=== PATIENT | male | born 1955 | race Caucasian/White ===

== ENCOUNTER 2017-11-15 18:59 | Observation (INO) | payer BC ==
[2017-11-15] MEDS ORDERED: Aspirin 81 MG Tab.Chew PO ONE (19:14)
[2017-11-15] MEDS ORDERED: Sodium Chloride 0.9% 2.5 ML Syringe FLUSH PRN (19:14)
[2017-11-15] MEDS ORDERED: Albuterol/Ipratropium 3.0-0.5 MG/3 ML Neb Soln NEB ONE (19:14)
[2017-11-15] MEDS ORDERED: Sodium Chloride 0.9% 10 ML Syringe FLUSH PRN (19:14)
--- NOTE | 2017-11-15 19:18 | EDM.PDOC ---
ED HPI GENERAL MEDICAL PROBLEM - General Chief Complaint: Chest Pain Stated Complaint: FULL LIKE SYSTOM AND BOTH HAND AND ARMS TINGLE Time Seen by Provider: 11/15/17 19:08 - History of Present Illness INITIAL COMMENTS - FREE TEXT/NARRATIVE: HISTORY AND PHYSICAL: History of present illness: The patient is a 62-year-old male who follows with Dr. Thomas in our clinic and has a history of hypertension and hypercholesterolemia and has a history of smoking but quit 30+ years ago and was last tested as was 2 years ago which he did well on, who presents tonight with complaints of feeling rundown and low energy yesterday and then today about 12 noon feeling like he could not take a deep breath. He doesn't describe it as chest pain or shortness of breath but says that he felt like he should take a deep breath like he needed more oxygen and he couldn't do that. He said he felt some tightness in his chest when that occurred. Currently he feels at his baseline in the ED. He says he had a slight cough which was dry but no fevers no chills no runny nose or sore throat no abdominal pain vomiting or diarrhea. He is eating and drinking normally. He has no leg pain or swelling. He was concerned because he's never had this before and he wanted evaluation. He says he completely feels at his baseline currently. He's never been diagnosed with any cardiac or pulmonary disease. He has an appointment with Dr. Thomas next week for numbness and tingling in bilateral feet that has been ongoing for more than 6 months and that is not new or different today. He said that with today's symptoms he felt tingling in his arms bilaterally but currently that is not present. He had no weakness in his arms. The patient has no neck or back pain and no recent trauma or strenuous activity. The patient says that his symptoms with his breathing or both at rest and with activity. Review of systems: As per history of present illness and below otherwise all systems reviewed and negative. Past medical history: As per history of present illness and as reviewed below otherwise noncontributory. Surgical history: As per history of present illness and as reviewed below otherwise noncontributory. Social history: No reported history of drug or alcohol abuse. Family history: As per history of present illness and as reviewed below otherwise noncontributory. Physical exam: General: Well-developed well-nourished man who is nontoxic and vital signs are noted by me. He speaking clearly and easily in the ED without breathlessness HEENT: Atraumatic, normocephalic, negative for conjunctival pallor or scleral icterus, mucous membranes moist, throat clear, neck supple, nontender, trachea midline. Lungs: Clear to auscultation, breath sounds equal bilaterally, chest nontender. No wheezing stridor or work of breathing Heart: S1S2, regular rate and rhythm no overt murmurs and no overt JVD Abdomen: Soft, nondistended, nontender. Negative for masses or hepatosplenomegaly. NABS. There is some tympany on percussion of the upper abdomen without tenderness rebound or guarding Pelvis: Stable nontender. Genitourinary: Deferred. Rectal: Deferred. Extremities: Atraumatic, negative for cords or calf pain. Neurovascular unremarkable. No pedal edema or leg asymmetry Neuro: Awake, alert, oriented. Cranial nerves II through XII unremarkable. Cerebellum unremarkable. Motor and sensory unremarkable throughout. Exam nonfocal. Diagnostics: EKG chest x-ray CBC CMP troponin Therapeutics: IV O2 monitor aspirin duo neb Patient and at bedside are aware of all testing results and my concerns about the atypical nature of his presentation and the vagueness of his symptoms. I have offered and recommended a 23 hour observation due to his risk factors and age and he is agreeable. I will discuss this case with Dr. Camacho and place him on telemetry Impression: Nonspecific dyspnea, atypical chest pain rule out ACS Definitive disposition and diagnosis as appropriate pending reevaluation and review of above. Chest Pain Score (Numeric/FACES): 4 - Related Data Allergies Allergy/AdvReac Type Severity Reaction Status Date / Time No Known Allergies Allergy Verified 11/15/17 19:06 Home Meds: Home Meds Aspirin [Low Dose Aspirin EC] 81 mg PO DAILY 11/15/17 [History] Losartan/Hydrochlorothiazide [Losartan-HCTZ 100-25 MG] 1 tab PO DAILY 11/15/17 [ History] atorvaSTATin [Lipitor] 20 mg PO BEDTIME 11/15/17 [History] Past Medical History Cardiovascular History: Reports: High Cholesterol, Hypertension - Infectious Disease History Infectious Disease History: Reports: Chicken Pox, Measles Social & Family History - Tobacco Use Smoking Status *Q: Former Smoker Used Tobacco, but Quit: Yes Month/Year Tobacco Last Used: 1984 - Recreational Drug Use Recreational Drug Use: No ED ROS GENERAL - Review of Systems Review Of Systems: ROS reveals no pertinent complaints other than HPI. ED EXAM, GENERAL - Physical Exam Exam: See Below (See dictation) Course - Vital Signs Last Recorded V/S: Last Vital Signs Temp 36.3 C 11/15/17 19:03 Pulse 83 11/15/17 20:13 Resp 16 11/15/17 20:13 BP 114/80 11/15/17 20:13 Pulse Ox 93 L 11/15/17 20:13 - Orders/Labs/Meds Orders: Active Orders 24 hr Category Date Time Status Cardiac Monitoring [RC] . DIRECTED Care 11/15/17 19:13 Active EKG Documentation Completion [RC] STAT Care 11/15/17 19:13 Active Oxygen Therapy, ED [RC] ASDIRECTED Care 11/15/17 19:13 Active Pulse Oximetry [RC] ASDIRECTED Care 11/15/17 19:13 Active RT Aerosol Therapy [RC] ASDIRECTED Care 11/15/17 19:14 Active Chest 1V Frontal [CR] Stat Exams 11/15/17 19:14 Taken Sodium Chloride 0.9% [Saline Flush] Med 11/15/17 19:14 Active 10 ml FLUSH ASDIRECTED PRN Sodium Chloride 0.9% [Saline Flush] Med 11/15/17 19:14 Active 2.5 ml FLUSH ASDIRECTED PRN Saline Lock Insert [OM.PC] Stat Oth 11/15/17 19:13 Ordered Medication Orders Sodium Chloride (Saline Flush) 10 ml FLUSH ASDIRECTED PRN PRN Reason: Keep Vein Open Sodium Chloride (Saline Flush) 2.5 ml FLUSH ASDIRECTED PRN PRN Reason: Keep Vein Open Labs: Laboratory Tests 11/15/17 11/15/17 Range/Units 19:14 19:14 WBC 9.25 (4.0-11.0) K/uL RBC 5.26 (4.50-5.90) M/uL Hgb 16.3 (13.0-17.0) g/dL Hct 44.4 (38.0-50.0) % MCV 84.4 (80.0-98.0) fL MCH 31.0 (27.0-32.0) pg MCHC 36.7 (31.0-37.0) g/dL RDW Std Deviation 39.2 (28.0-62.0) fl RDW Coeff of Basilia 13 (11.0-15.0) % Plt Count 156 (150-400) K/uL MPV 12.00 (7.40-12.00) fL Neut % (Auto) 61.6 (48.0-80.0) % Lymph % (Auto) 27.5 (16.0-40.0) % [place] % (Auto) 8.8 (0.0-15.0) % Eos % (Auto) 1.7 (0.0-7.0) % Baso % (Auto) 0.4 (0.0-1.5) % Neut # (Auto) 5.7 (1.4-5.7) K/uL Lymph # (Auto) 2.5 H (0.6-2.4) K/uL [place] # (Auto) 0.8 (0.0-0.8) K/uL Eos # (Auto) 0.2 (0.0-0.7) K/uL Baso # (Auto) 0.0 (0.0-0.1) K/uL Nucleated RBC % 0.0 /100WBC Nucleated RBCs # 0 K/uL Sodium 137 (136-148) mmol/L Potassium 3.4 L (3.5-5.1) mmol/L Chloride 101 (98-107) mmol/L Carbon Dioxide 28.4 (21.0-32.0) mmol/L BUN 20 H (7.0-18.0) mg/dL Creatinine 1.2 (0.8-1.3) mg/dL Est Cr Clr Drug Dosing 67.11 mL/min Estimated GFR (MDRD) > 60.0 ml/min Glucose 136 H (74-106) mg/dL Calcium 10.0 (8.5-10.1) mg/dL Total Bilirubin 0.7 (0.2-1.0) mg/dL AST 21 (15-37) IU/L ALT 41 (14-63) IU/L Alkaline Phosphatase 78 (46-116) U/L Troponin I < 0.050 (0.000-0.056) ng/mL Total Protein 8.0 (6.4-8.2) g/dL Albumin 4.4 (3.4-5.0) g/dL Globulin 3.6 H (2.0-3.5) g/dL Albumin/Globulin Ratio 1.2 L (1.3-2.8) Meds: Medications Generic Name Dose Route Start Last Admin Trade Name Freq PRN Reason Stop Dose Admin Sodium Chloride 10 ml 11/15/17 19:14 Saline Flush FLUSH ASDIRECTED PRN Keep Vein Open Sodium Chloride 2.5 ml 11/15/17 19:14 Saline Flush FLUSH ASDIRECTED PRN Keep Vein Open Discontinued Medications Generic Name Dose Route Start Last Admin Trade Name Freq PRN Reason Stop Dose Admin Albuterol/Ipratropium 3 ml 11/15/17 19:14 11/15/17 19:28 Duoneb 3.0-0.5 Mg/3 Ml NEB 11/15/17 19:15 3 ml ONETIME ONE Administration Aspirin 324 mg 11/15/17 19:14 11/15/17 19:34 Aspirin PO 11/15/17 19:15 324 mg ONETIME ONE Administration Departure - Departure Time of Disposition: 20:19 Disposition: Refer to Observation Condition: Good Clinical Impression: Atypical chest pain Dyspnea Qualifiers: Dyspnea type: unspecified Qualified Code(s): R06.00 - Dyspnea, unspecified - Discharge Information Referrals: Nakul Thomas MD [Primary Care Provider] - Forms: ED Department Discharge - My Orders Last 24 Hours: My Active Orders 11/15/17 19:13 Cardiac Monitoring [RC] . DIRECTED EKG Documentation Completion [RC] STAT Oxygen Therapy, ED [RC] ASDIRECTED Pulse Oximetry [RC] ASDIRECTED Saline Lock Insert [OM.PC] Stat 11/15/17 19:14 RT Aerosol Therapy [RC] ASDIRECTED Chest 1V Frontal [CR] Stat Sodium Chloride 0.9% [Saline Flush] 10 ml FLUSH ASDIRECTED PRN Sodium Chloride 0.9% [Saline Flush] 2.5 ml FLUSH ASDIRECTED PRN - Assessment/Plan Last 24 Hours: My Active Orders 11/15/17 19:13 Cardiac Monitoring [RC] . DIRECTED EKG Documentation Completion [RC] STAT Oxygen Therapy, ED [RC] ASDIRECTED Pulse Oximetry [RC] ASDIRECTED Saline Lock Insert [OM.PC] Stat 11/15/17 19:14 RT Aerosol Therapy [RC] ASDIRECTED Chest 1V Frontal [CR] Stat Sodium Chloride 0.9% [Saline Flush] 10 ml FLUSH ASDIRECTED PRN Sodium Chloride 0.9% [Saline Flush] 2.5 ml FLUSH ASDIRECTED PRN
[2017-11-15 19:45] LABS: CHLORIDE,CL 101 mmol/L (98-107); SODIUM,NA 137 mmol/L (136-148)
[2017-11-15] MEDS ORDERED: Calcium Carbonate 500 MG Tab.Chew PO PRN (22:12)
[2017-11-15] MEDS ORDERED: Acetaminophen 325 MG Tab PO PRN (22:14)
--- NOTE | 2017-11-16 07:53 | PCM.HP ---
H&P History of Present Illness - General Date of Service: 11/16/17 Admit Problem/Dx: Admission Diagnosis/Problem Admission Diagnosis/Problem Dyspnea - History of Present Illness Initial Comments - Free Text/Narative: The patient is a 62-year-old male who presented to the ER with complaints of lightheadedness, chest tightness, overall feeling of being run down and he felt he couldn't catch his breath. He had been feeling this for a couple days. He denies any acute chest pain, but just felt tight and he denies any shortness of breath, just feeling like he couldn't take a deep breath. He does have significant family history of heart disease with his older brother dying of a heart attack at 63 and his father having his first heart attack at 58. The patient does have history of hypertension, hyperlipidemia, was a former smoker 30 years ago, He gets stress tests every couple years. He thinks his last stress test was 2-3 years ago. They've never found any abnormalities on the stress test. In the ER, they did chest x-ray that showed no acute cardiopulmonary process, an EKG which was showed sinus rhythm, they got a CBC, CMP, and initial troponin which was negative. In the ER, they gave him a dose of aspirin and a DuoNeb treatment, which only helped a little. He is currently asymptomatic and wants to go home. Chest Pain Score (Numeric/FACES): 4 - Related Data Allergies/Adverse Reactions: Allergies Allergy/AdvReac Type Severity Reaction Status Date / Time No Known Allergies Allergy Verified 11/15/17 19:06 Home Medications: Home Meds Aspirin [Low Dose Aspirin EC] 81 mg PO DAILY 11/15/17 [History] Losartan/Hydrochlorothiazide [Losartan-HCTZ 100-25 MG] 1 tab PO DAILY 11/15/17 [ History] atorvaSTATin [Lipitor] 20 mg PO BEDTIME 11/15/17 [History] Past Medical History Cardiovascular History: Reports: High Cholesterol, Hypertension - Infectious Disease History Infectious Disease History: Reports: Chicken Pox, Hepatitis C, Measles - Past Surgical History Head Surgeries/Procedures: Reports: None HEENT Surgical History: Reports: None Cardiovascular Surgical History: Reports: None Respiratory Surgical History: Reports: None GI Surgical History: Reports: None Male Surgical History: Reports: None Endocrine Surgical History: Reports: None Neurological Surgical History: Reports: None Musculoskeletal Surgical History: Reports: None Oncologic Surgical History: Reports: None Dermatological Surgical History: Reports: None Social & Family History - Tobacco Use Smoking Status *Q: Never Smoker Used Tobacco, but Quit: Yes Month/Year Tobacco Last Used: 1984 - Caffeine Use Caffeine Use: Reports: Coffee - Alcohol Use Alcohol Use History: No - Recreational Drug Use Recreational Drug Use: No H&P Review of Systems - Review of Systems: Review Of Systems: See Below General: Reports: Fatigue HEENT: Reports: No Symptoms Pulmonary: Reports: Other (trouble getting deep breath-resolved) Cardiovascular: Reports: Other (chest tightness resolved) Gastrointestinal: Reports: No Symptoms Genitourinary: Reports: No Symptoms Musculoskeletal: Reports: No Symptoms Skin: Reports: No Symptoms Psychiatric: Reports: No Symptoms Neurological: Reports: Headache Hematologic/Lymphatic: Reports: No Symptoms Immunologic: Reports: No Symptoms Exam - Exam Exam: See Below - Vital Signs Vital Signs: Last Vital Signs Temp 96.6 F 11/16/17 03:43 Pulse 61 11/16/17 03:43 Resp 16 11/16/17 03:43 BP 124/74 11/16/17 03:43 Pulse Ox 99 11/16/17 03:43 Weight: 92.079 kg - Exam General: Alert, Oriented HEENT: Conjunctiva Clear, EOMI, Mucosa Moist & [place], Posterior Pharynx Clear, Pupils Equal, Pupils Reactive Neck: Supple Lungs: Clear to Auscultation, Normal Respiratory Effort Cardiovascular: Regular Rate, Regular Rhythm GI/Abdominal Exam: Normal Bowel Sounds, Soft, Non-Tender, No Distention Extremities: Normal Inspection, No Pedal Edema Skin: Warm, Dry, Intact Neurological: Strength Equal Bilateral Psychiatric: Alert, Normal Affect, Normal Mood - Patient Data Lab Results Last 24 hrs: Laboratory Results - last 24 hr 11/15/17 11/15/17 11/16/17 Range/Units 19:14 19:14 00:55 WBC 9.25 (4.0-11.0) K/uL RBC 5.26 (4.50-5.90) M/uL Hgb 16.3 (13.0-17.0) g/dL Hct 44.4 (38.0-50.0) % MCV 84.4 (80.0-98.0) fL MCH 31.0 (27.0-32.0) pg MCHC 36.7 (31.0-37.0) g/dL RDW Std Deviation 39.2 (28.0-62.0) fl RDW Coeff of Basilia 13 (11.0-15.0) % Plt Count 156 (150-400) K/uL MPV 12.00 (7.40-12.00) fL Neut % (Auto) 61.6 (48.0-80.0) % Lymph % (Auto) 27.5 (16.0-40.0) % [place] % (Auto) 8.8 (0.0-15.0) % Eos % (Auto) 1.7 (0.0-7.0) % Baso % (Auto) 0.4 (0.0-1.5) % Neut # (Auto) 5.7 (1.4-5.7) K/uL Lymph # (Auto) 2.5 H (0.6-2.4) K/uL [place] # (Auto) 0.8 (0.0-0.8) K/uL Eos # (Auto) 0.2 (0.0-0.7) K/uL Baso # (Auto) 0.0 (0.0-0.1) K/uL Nucleated RBC % 0.0 /100WBC Nucleated RBCs # 0 K/uL Sodium 137 (136-148) mmol/L Potassium 3.4 L (3.5-5.1) mmol/L Chloride 101 (98-107) mmol/L Carbon Dioxide 28.4 (21.0-32.0) mmol/L BUN 20 H (7.0-18.0) mg/dL Creatinine 1.2 (0.8-1.3) mg/dL Est Cr Clr Drug Dosing 67.11 mL/min Estimated GFR (MDRD) > 60.0 ml/min Glucose 136 H (74-106) mg/dL Calcium 10.0 (8.5-10.1) mg/dL Total Bilirubin 0.7 (0.2-1.0) mg/dL AST 21 (15-37) IU/L ALT 41 (14-63) IU/L Alkaline Phosphatase 78 (46-116) U/L Troponin I < 0.050 < 0.050 (0.000-0.056) ng/mL Total Protein 8.0 (6.4-8.2) g/dL Albumin 4.4 (3.4-5.0) g/dL Globulin 3.6 H (2.0-3.5) g/dL Albumin/Globulin Ratio 1.2 L (1.3-2.8) 11/16/17 Range/Units 06:51 WBC (4.0-11.0) K/uL RBC (4.50-5.90) M/uL Hgb (13.0-17.0) g/dL Hct (38.0-50.0) % MCV (80.0-98.0) fL MCH (27.0-32.0) pg MCHC (31.0-37.0) g/dL RDW Std Deviation (28.0-62.0) fl RDW Coeff of Basilia (11.0-15.0) % Plt Count (150-400) K/uL MPV (7.40-12.00) fL Neut % (Auto) (48.0-80.0) % Lymph % (Auto) (16.0-40.0) % [place] % (Auto) (0.0-15.0) % Eos % (Auto) (0.0-7.0) % Baso % (Auto) (0.0-1.5) % Neut # (Auto) (1.4-5.7) K/uL Lymph # (Auto) (0.6-2.4) K/uL [place] # (Auto) (0.0-0.8) K/uL Eos # (Auto) (0.0-0.7) K/uL Baso # (Auto) (0.0-0.1) K/uL Nucleated RBC % /100WBC Nucleated RBCs # K/uL Sodium (136-148) mmol/L Potassium (3.5-5.1) mmol/L Chloride (98-107) mmol/L Carbon Dioxide (21.0-32.0) mmol/L BUN (7.0-18.0) mg/dL Creatinine (0.8-1.3) mg/dL Est Cr Clr Drug Dosing mL/min Estimated GFR (MDRD) ml/min Glucose (74-106) mg/dL Calcium (8.5-10.1) mg/dL Total Bilirubin (0.2-1.0) mg/dL AST (15-37) IU/L ALT (14-63) IU/L Alkaline Phosphatase (46-116) U/L Troponin I < 0.050 (0.000-0.056) ng/mL Total Protein (6.4-8.2) g/dL Albumin (3.4-5.0) g/dL Globulin (2.0-3.5) g/dL Albumin/Globulin Ratio (1.3-2.8) Result Diagrams: 11/15/17 19:14 11/15/17 19:14 Problem List Initiated/Reviewed/Updated: Yes Orders Last 24hrs: Active Orders 24 hr Category Date Time Status Patient Status [ADT] Stat ADT 11/15/17 20:19 Active Cardiac Monitoring [RC] . DIRECTED Care 11/15/17 19:13 Active EKG Documentation Completion [RC] STAT Care 11/15/17 19:13 Active Oxygen Therapy, ED [RC] ASDIRECTED Care 11/15/17 19:13 Active Pulse Oximetry [RC] ASDIRECTED Care 11/15/17 19:13 Active RT Aerosol Therapy [RC] ASDIRECTED Care 11/15/17 19:14 Active Heart Healthy Diet [DIET] Diet 11/16/17 Breakfast Active Chest 1V Frontal [CR] Stat Exams 11/15/17 19:14 Taken Acetaminophen [Tylenol] Med 11/15/17 22:14 Active 650 mg PO Q6H PRN Aspirin [Halfprin] Med 11/16/17 09:00 Active 81 mg PO DAILY Calcium Carbonate [Tums] Med 11/15/17 22:12 Active 500 mg PO TID PRN Hydrochlorothiazide/Losartan [Hyzaar 50-12.5 MG] Med 11/16/17 09:00 Active 2 tab PO DAILY Sodium Chloride 0.9% [Saline Flush] Med 11/15/17 19:14 Active 10 ml FLUSH ASDIRECTED PRN Sodium Chloride 0.9% [Saline Flush] Med 11/15/17 19:14 Active 2.5 ml FLUSH ASDIRECTED PRN atorvaSTATin [Lipitor] Med 11/16/17 09:00 Active 20 mg PO DAILY Saline Lock Insert [OM.PC] Stat Oth 11/15/17 19:13 Ordered Medication Orders Acetaminophen (Tylenol) 650 mg PO Q6H PRN PRN Reason: Pain Aspirin (Halfprin) 81 mg PO DAILY [place] Atorvastatin Calcium (Lipitor) 20 mg PO DAILY [place] Calcium Carbonate/Glycine (Tums) 500 mg PO TID PRN PRN Reason: Indigestion HCTZ/Losartan Potassium (Hyzaar 50-12.5 Mg) 2 tab PO DAILY [place] Sodium Chloride (Saline Flush) 10 ml FLUSH ASDIRECTED PRN PRN Reason: Keep Vein Open Sodium Chloride (Saline Flush) 2.5 ml FLUSH ASDIRECTED PRN PRN Reason: Keep Vein Open Assessment/Plan Comment:: 1. Admit observation 2. Code Status- full 3. Vitals per routine 4. I/Os per routine 5. Diet- heart healthy 6. Atypical chest pain with dyspena- resolved. He is currently asymptomatic, his troponins were trended and were negative x 3. He was placed on telemetry without any significant events. He was ready to be discahrge and wanted to go home after spending the night in the hospital. He has a follow up with his PCP , Dr. Thomas on 11/24/17 already. We will order an outpatient stress test. Continue home meds, no changes. He should continue heart healthy diet, and report any episodes of chest pain, shortness of breath, abdominal pain, fever/ chills, discharge, or swelling to his physician.
[2017-11-16] MEDS ORDERED: Hydrochlorothiazide/Losartan 12.5-50 mg Tab PO SCH (09:00)
[2017-11-16] MEDS ORDERED: atorvaSTATin 20 MG Tab PO SCH (09:00)
[2017-11-16] MEDS ORDERED: Aspirin 81 MG Tab.EC PO SCH (09:00)
--- NOTE | 2017-11-16 09:05 | CR ---
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 Site : [id number] Study: XRay Chest [id number] 7:46:33 PM Ordering Physician: Dante Pennington Final Report: INDICATION: pain/sob TECHNIQUE: Chest 1 view. COMPARISON: None. FINDINGS: Cardiovascular and mediastinum: Heart size and vasculature are normal in caliber and appearance. Mediastinum is within normal limits. Lungs and pleural space: Lungs are clear. No sign of infiltrate or mass. No sign of pleural effusion. No pneumothorax. Bones and soft tissues: No significant findings. IMPRESSION: Unremarkable chest. Dictated by: Curtis Canchola MD @ 11/15/2017 19:59:29 (Electronic Signature) Report Signed by Proxy. [email or web address]
== END 2017-11-16 13:01 | disposition home or self-care (01) ==
LOC: MW.ED 18:59 → MW.MS 20:19
PROVIDERS: ADMIT Internal Medicine; ATTEND Internal Medicine
DX: R07.89 Other chest pain (principal); R06.00 Dyspnea, unspecified; I10 Essential (primary) hypertension; E78.00 Pure hypercholesterolemia, unspecified; Z87.891 Personal history of nicotine dependence; Z79.82 Long term (current) use of aspirin; Z79.899 Other long term (current) drug therapy
CPT/HCPCS: 36415; 71045; 80053; 84484; 85025; 93005; 94640; 99285; A9270; G0378; 99283; J7620-GY

== ENCOUNTER 2019-02-23 11:18 | Emergency (ER) | payer BC ==
--- NOTE | 2019-02-23 12:03 | EDM.PDOC ---
ED HPI GENERAL MEDICAL PROBLEM - General Chief Complaint: Lower Extremity Injury/Pain Stated Complaint: LEFT LEG SWELLING/SHARP PAIN Time Seen by Provider: 02/23/19 11:49 Source of Information: Reports: Patient History Limitations: Reports: No Limitations - History of Present Illness INITIAL COMMENTS - FREE TEXT/NARRATIVE: HISTORY AND PHYSICAL: History of present illness: Patient is a 63-year-old male who presents to the ED today with concern of left calf swelling over the past several days. Patient states that he was on a flight to and from [place] when he noticed a pain in the back of his left calf and had some mild swelling. Patient states the swelling improves at night but then worsens again during the day. Patient states he does have an appointment tomorrow with his primary care provider, Dr. Thomas for evaluation. Patient denies fever, chills, chest pain, shortness of breath, or cough. Denies headache, neck stiff ness, change in vision, syncope, or near syncope. Denies nausea, vomiting, abdominal pain, diarrhea, constipation, or dysuria. Has not noted any blood in urine or stool. Patient has been eating and drinking appropriately. Review of systems: As per history of present illness and below otherwise all systems reviewed and negative. Past medical history: As per history of present illness and as reviewed below otherwise noncontributory. Surgical history: As per history of present illness and as reviewed below otherwise noncontributory. Social history: See social history for further information Family history: As per history of present illness and as reviewed below otherwise noncontributory. Physical exam: General: Patient is alert, oriented, and in no acute distress. Patient sitting comfortably on exam table. HEENT: Atraumatic, normocephalic, pupils equal and reactive bilaterally, negative for conjunctival pallor or scleral icterus, mucous membranes moist, TMs normal bilaterally, throat clear, neck supple, nontender, trachea midline. No drooling or trismus noted. No meningeal signs. No hot potato voice noted. Lungs: Clear to auscultation, breath sounds equal bilaterally, chest nontender. Heart: S1S2, regular rate and rhythm without overt murmur Abdomen: Soft, nondistended, nontender. Negative for masses or hepatosplenomegaly. Negative for costovertebral tenderness. Pelvis: Stable nontender. Genitourinary: Deferred. Rectal: Deferred. Skin: Intact, warm, dry. No lesions or rashes noted. Extremities: Atraumatic, negative for cords or calf pain. Neurovascular unremarkable. No edema/erythema of the bilateral lower extremities. Neuro: Awake, alert, oriented. Cranial nerves II through XII unremarkable. Cerebellum unremarkable. Motor and sensory unremarkable throughout. Exam nonfocal. Notes: Discussed importance for keeping his appointment tomorrow with Dr. Thomas as he is scheduled. Voices understanding and is agreeable to plan of care. Denies any further questions or concerns at this time. Diagnostics: LE venous US Therapeutics: None Prescription: None Impression: Left calf pain, left H/O calf edema, left Plan: 1. You can alternate ibuprofen and Tylenol as directed for pain and discomfort. 2. Follow-up with your primary care provider as scheduled and as discussed. Return to the ED as needed and as discussed. Definitive disposition and diagnosis as appropriate pending reevaluation and review of above. Left Lower Leg Pain Score (Numeric/FACES): 2 - Related Data Allergies Allergy/AdvReac Type Severity Reaction Status Date / Time No Known Allergies Allergy Verified 02/23/19 11:44 Home Meds: Home Meds Aspirin [Low Dose Aspirin EC] 81 mg PO DAILY 11/15/17 [History] Gabapentin [Neurontin] 300 mg PO ASDIRECTED 02/23/19 [History] NIFEdipine [Procardia Xl] 30 mg PO ASDIRECTED 02/23/19 [History] Pantoprazole Sodium 40 mg PO ASDIRECTED 02/23/19 [History] atorvaSTATin [Lipitor] 20 mg PO BEDTIME 02/23/19 [History] Past Medical History Cardiovascular History: Reports: High Cholesterol, Hypertension - Infectious Disease History Infectious Disease History: Reports: Chicken Pox, Measles, Mumps - Past Surgical History Head Surgeries/Procedures: Reports: None HEENT Surgical History: Reports: None Cardiovascular Surgical History: Reports: None Respiratory Surgical History: Reports: None GI Surgical History: Reports: None Male Surgical History: Reports: None Endocrine Surgical History: Reports: None Neurological Surgical History: Reports: None Musculoskeletal Surgical History: Reports: None Oncologic Surgical History: Reports: None Dermatological Surgical History: Reports: None Social & Family History - Family History Family Medical History: Noncontributory - Tobacco Use Smoking Status *Q: Never Smoker Second Hand Smoke Exposure: No - Caffeine Use Caffeine Use: Reports: Coffee - Recreational Drug Use Recreational Drug Use: No Review of Systems - Review of Systems Review Of Systems: Comprehensive ROS is negative, except as noted in HPI. ED EXAM, GENERAL - Physical Exam Exam: See Below (see dictation) Course - Vital Signs Last Recorded V/S: Last Vital Signs Temp 97.8 F 02/23/19 11:47 Pulse 88 02/23/19 11:47 Resp 16 02/23/19 11:47 BP 123/91 H 02/23/19 11:47 Pulse Ox 97 02/23/19 11:47 Departure - Departure Time of Disposition: 12:48 Disposition: Home, Self-Care 01 Clinical Impression: History of edema Calf pain Qualifiers: Laterality: left Qualified Code(s): M79.662 - Pain in left lower leg - Discharge Information Referrals: Nakul Thomas MD [Primary Care Provider] - Forms: ED Department Discharge Additional Instructions: The following information is given to patients seen in the emergency department who are being discharged to home. This information is to outline your options for follow-up care. We provide all patients seen in our emergency department with a follow-up referral. The need for follow-up, as well as the timing and circumstances, are variable depending upon the specifics of your emergency department visit. If you don't have a primary care physician on staff, we will provide you with a referral. We always advise you to contact your personal physician following an emergency department visit to inform them of the circumstance of the visit and for follow-up with them and/or the need for any referrals to a consulting specialist. The emergency department will also refer you to a specialist when appropriate. This referral assures that you have the opportunity for follow-up care with a specialist. All of these measure are taken in an effort to provide you with optimal care, which includes your follow-up. Under all circumstances we always encourage you to contact your private physician who remains a resource for coordinating your care. When calling for follow-up care, please make the office aware that this follow-up is from your recent emergency room visit. If for any reason you are refused follow-up, please contact the [facility] Emergency Department at and asked to speak to the emergency department charge nurse. [facility] [address] [place] [id number] [facility] [address] [place] [id number] 1. You can alternate ibuprofen and Tylenol as directed for pain and discomfort. 2. Follow-up with your primary care provider as scheduled and as discussed. Return to the ED as needed and as discussed. Sepsis Event Note - Evaluation Sepsis Screening Result: No Definite Risk - Focused Exam Vital Signs: Vital Signs Temp Pulse Resp BP Pulse Ox 02/23/19 11:47 97.8 F 88 16 123/91 H 97 Date Exam was Performed: 02/23/19 Time Exam was Performed: 12:47
--- NOTE | 2019-02-23 12:44 | US ---
Left lower extremity deep venous ultrasound: Duplex and color Doppler imaging was obtained of the left common femoral, superficial femoral, popliteal, posterior tibial and peroneal veins. Findings: Normal color Doppler and compression is seen. Impression: 1. No evidence of deep venous thrombosis within the left lower extremity. Diagnostic code #1 This report was dictated in [place] Standard Time
== END 2019-02-23 13:05 | disposition home or self-care (01) ==
LOC: MW.ED 11:18
DX: M79.662 Pain in left lower leg (principal); E78.00 Pure hypercholesterolemia, unspecified; I10 Essential (primary) hypertension; Z79.82 Long term (current) use of aspirin; Z79.899 Other long term (current) drug therapy
CPT/HCPCS: 93971-26-LT; 93971-LT; 99282; 99283-25

== ENCOUNTER 2024-12-13 06:21 | Day surgery (SDC) | payer BC ==
[~2024-12-13 06:21] MED LIST: ceFAZolin 2 GM in Water For Injection, Sterile 20 ML IVPUSH ONE
[2024-12-13] MEDS ORDERED: Ropivacaine 0.5% 5 MG/ML 30 ML SDV ONE (06:57)
[2024-12-13] MEDS ORDERED: Midazolam 1 MG/ML 2 ML SDV ONE (06:59)
[2024-12-13] MEDS ORDERED: fentaNYL 100 MCG/2 ML SDV ONE (06:59)
[2024-12-13] MEDS ORDERED: Propofol 200 MG/20 ML SDV ONE (06:59)
[2024-12-13] MEDS ORDERED: dexmedeTOMIDine HCl 200 MCG/2 ML SDV ONE (07:00)
[2024-12-13] MEDS: Lactated Ringers 1,000 ML IV SCH (07:00)
[2024-12-13] MEDS ORDERED: Naloxone 0.4 MG/ML SDV IVPUSH PRN (07:58)
[2024-12-13] MEDS ORDERED: Albuterol 0.083% 2.5 MG/3 ML Neb Soln NEB PRN (07:58)
[2024-12-13] MEDS ORDERED: fentaNYL 50 MCG/ML SDV IVPUSH PRN (07:58)
[2024-12-13] MEDS ORDERED: Ondansetron 4 MG/2 ML SDV IVPUSH PRN (07:58)
[2024-12-13] MEDS ORDERED: Ondansetron 4 MG/2 ML SDV ONE (08:26)
[2024-12-13] MEDS ORDERED: Dexamethasone 4 MG/ML 5 ML MDV ONE (08:26)
[2024-12-13] MEDS ORDERED: ePHEDrine 50 MG/ML SDV ONE (08:46)
[2024-12-13] MEDS ORDERED: Ketorolac 30 MG/ML SDV ONE (09:07)
== END 2024-12-13 11:10 | disposition home or self-care (01) ==
LOC: MW.SDS 06:21
PROVIDERS: ATTEND Surgery
DX: K40.90 Unilateral inguinal hernia, without obstruction or gangrene, not specified as recurrent (principal); D17.6 Benign lipomatous neoplasm of spermatic cord; I10 Essential (primary) hypertension; E78.00 Pure hypercholesterolemia, unspecified; K21.9 Gastro-esophageal reflux disease without esophagitis; Z87.891 Personal history of nicotine dependence; Z79.82 Long term (current) use of aspirin; Z79.899 Other long term (current) drug therapy
CPT/HCPCS: 49650; C1781; J0665; J0690; J1100; J1171; J1596; J1885; J2003; J2250; J2405; J2704; J2795; J3010; J7120; 00830; 64488; J3490